=== PATIENT | male | born 1990 | race African-American/Black ===

== ENCOUNTER 2016-07-13 22:53 | Emergency (ER) | payer MEDICAID | END 2016-07-14 00:05 | disposition home or self-care (01) | LOC: D.ER 22:53 | DX: K04.7 Periapical abscess without sinus (principal); K08.89 Other specified disorders of teeth and supporting structures; K02.9 Dental caries, unspecified ==

== ENCOUNTER 2016-10-14 17:25 | Emergency (ER) | payer MEDICAID | END 2016-10-14 20:35 | disposition home or self-care (01) | LOC: D.ER 17:25 | DX: S16.1XXA Strain of muscle, fascia and tendon at neck level, initial encounter (principal); V89.2XXA Person injured in unspecified motor-vehicle accident, traffic, initial encounter; Y93.89 Activity, other specified; Y92.410 Unspecified street and highway as the place of occurrence of the external cause; S29.012A Strain of muscle and tendon of back wall of thorax, initial encounter; F17.200 Nicotine dependence, unspecified, uncomplicated; F12.90 Cannabis use, unspecified, uncomplicated ==

== ENCOUNTER 2017-07-25 17:45 | Emergency (ER) | payer MEDICAID | END 2017-07-25 20:34 | disposition home or self-care (01) | LOC: D.ER 17:45 | DX: S43.004A Unspecified dislocation of right shoulder joint, initial encounter (principal); X58.XXXA Exposure to other specified factors, initial encounter; Y93.89 Activity, other specified; Y92.89 Other specified places as the place of occurrence of the external cause; F17.200 Nicotine dependence, unspecified, uncomplicated ==

== ENCOUNTER → 2017-08-25 11:14 | Outpatient (CLI) | payer MEDICAID | END | disposition home or self-care (01) | LOC: D.MRI 11:14 | DX: M25.311 Other instability, right shoulder (principal) ==

== ENCOUNTER 2017-09-17 10:40 | Day surgery (SDC) | payer MEDICAID ==
[~2017-09-17] VITALS: Ht 177.8 cm; Wt 81.6 kg
--- NOTE | ~2017-09-17 | OP ---
PATIENT NAME: ROXANNA RICHARDSON MEDICAL RECORD: [id number] :92 LOCATION:[facility] ADMISSION DATE: SURGEON: ONEIDA TOLEDO MD DATE OF OPERATION: 09/17/2017 PREOPERATIVE DIAGNOSES: Right shoulder instability with Bankart lesion. POSTOPERATIVE DIAGNOSIS: Right shoulder instability with Bankart lesion. PROCEDURE: Open Bankart repair of the right shoulder. SURGEON: Oneida Toledo MD ANESTHESIA: General. INTRAOPERATIVE COMPLICATIONS: None. SUMMARY OF PATHOLOGIC FINDINGS: The patient indeed was found to have a partial bony partial periosteal sleeve avulsion type injury with severe instability with intraoperative anesthetic testing. OPERATIVE SUMMARY IN DETAIL: After obtaining the appropriate preoperative orthopedic surgery consent as well as anesthetic consultation, evaluation and clearance, the patient was brought to the operating room and placed on the operating table in supine position. After general laryngeal mask airway was administered, the patient was placed in the beach chair position. All pressure points were well padded. He was held firmly to the operating room table using the vacuum pack suction system. Right upper extremity and shoulder were prepped and draped in routine sterile fashion. The arm was held in Trimano arm holding device. Attempted arthroscopy was established; however, the patient was so unstable, he was very worried about the articular damage. For this reason, the arthroscopic portion was aborted. Anterior deltopectoral incision was made, taken down to the level of the cephalic vein, which was identified and protected throughout the entire case. The deltopectoral raphae was split to the clavipectoral fascia, which was incised. Conjoined tendon was gently retracted medially while the brown retractor retracted the deltoid laterally. The subscapularis was taken off the capsule and reflected. Then, the capsule was taken down and reflected as well. The patient had a very patulous inferior capsule and the findings of the anterior inferior glenoid were noted. A combination of a labral elevator, rasp as well as the Arthrex resector were utilized to prepare the anterior inferior and anterior superior aspect of the glenoid. At this point, a total of 4 PushLocks were placed at the 5:30, 4 o'clock, 2:30, and 1:30 position. They were passed through the capsule using the lasso passer and from inferior to superior these were tied holding the capsule tight while they were tied. Having completed this, the capsule was then advanced and it was tied with an imbricated style suture superiorly and tied laterally on the lesser tuberosity. Lastly, the subscapularis was slightly advanced to the level of the biceps tendon and reapproximated using #2 FiberWire. Having completed this, the wound was copiously irrigated and closed with #1 Vicryl, 2-0 Vicryl and skin isatu. Sterile dressings were applied. The patient was awakened and taken to recovery room in stable condition. All final needle and sponge counts were correct. TRANSINT:[id number] Voice Confirmation ID: [id number] DOCUMENT ID: [id number] OPERATIVE REPORT [id number] ROXANNA RICHARDSON MD, ONEIDA CHAUDHRY at 1601 CC: [id number] DICTATION DATE: 09/17/17 1347 INSIDE WIRER: 09/17/17 1433 [facility] [address] [place] [address]
[2017-09-17 11:30] VITALS: BP 136/84; Ht 177.8 cm; Wt 81.6 kg
[2017-09-17] MEDS ORDERED: HYDROCODONE-APA1 TAB PO (13:43)
== END 2017-09-17 16:10 | disposition home or self-care (01) ==
LOC: D.OPS 10:40 → D.PAN 12:00 → D.OPS 12:15 → D.PAN 13:05 → D.OPS 13:05 → D.PAN 14:15 → D.OPS 14:15
DX: M25.311 Other instability, right shoulder (principal); M24.411 Recurrent dislocation, right shoulder; Z01.812 Encounter for preprocedural laboratory examination

== ENCOUNTER 2020-03-02 19:11 | Emergency (ER) | payer MEDICAID ==
[~2020-03-02] VITALS: Ht 177.8 cm; Wt 77.1 kg
[~2020-03-02 19:11] MED LIST: HYDROCODONE-APA1 TAB PO
[2020-03-02 19:48] VITALS: Ht 177.8 cm; Wt 77.1 kg
[2020-03-02 23:35] VITALS: BP 135/86
--- NOTE | 2020-03-06 16:13 | OP ---
PATIENT NAME: ROXANNA RICHARDSON MEDICAL RECORD: [id number] :92 LOCATION:[facility] ADMISSION DATE: SURGEON: ONEIDA TOLEDO MD DATE OF OPERATION: 03/02/2020 PREOPERATIVE DIAGNOSIS: Left anterior-inferior shoulder dislocation. POSTOPERATIVE DIAGNOSIS: Left anterior-inferior shoulder dislocation. PROCEDURE: Closed reduction of left anterior-inferior shoulder under TIVA anesthesia. SURGEON: Oneida Toledo MD ANESTHESIA: TIVA given by Alexx James CRNA. INDICATIONS: This is a 29-year-old gentleman who previously had operative intervention by myself on the contralateral side for chronic dislocations. He has had several episodes of dislocations on his left side and presents tonight with a dislocation that he cannot put back in himself. Orthopedic surgery was subsequently consulted. PROCEDURAL REPORT IN DETAIL: After obtaining the appropriate preoperative orthopedic surgery consent as well as anesthetic consultation, evaluation, and clearance, the patient was seen in the ER and he was given the appropriate amount of tube anesthesia by Alexx James CRNA. After that had taken effect, traction-countertraction with a very small amount of lateral pull resulted in a closed reduction. Post-reduction films were taken and showed the shoulder had been reduced nicely. At this point, the patient was placed in a sling, given the appropriate pain medications. He will follow up in my clinic this week to discuss his options and need for further intervention. NTS:[id number] Voice Confirmation ID: [id number] DOCUMENT ID: [id number] ONEIDA TOLEDO MD at 1613 CC: [id number] DICTATION DATE: 03/05/20856 EQUAL OPPORTUNITY REPRESENTATIVE: 03/05/202022 [facility] ER 03/02/20 [id number] [place] [address]
== END 2020-03-02 23:45 | disposition home or self-care (01) ==
LOC: D.ER 19:11
DX: S43.005A Unspecified dislocation of left shoulder joint, initial encounter (principal); X58.XXXA Exposure to other specified factors, initial encounter

== ENCOUNTER 2020-09-18 17:00 | Emergency (ER) | payer SELFPAY ==
[~2020-09-18] VITALS: Ht 177.8 cm; Wt 81.8 kg
[2020-09-18 17:30] VITALS: BP 106/80; Ht 177.8 cm; Wt 81.8 kg
[2020-09-18] MEDS ORDERED: DICLOFENAC SODI50 MG PO (18:29)
== END 2020-09-18 20:38 | disposition left against medical advice (07) ==
LOC: D.ER 17:00
DX: S43.004A Unspecified dislocation of right shoulder joint, initial encounter (principal); Z53.29 Procedure and treatment not carried out because of patient's decision for other reasons; X58.XXXA Exposure to other specified factors, initial encounter

== ENCOUNTER 2020-11-08 10:25 | Emergency (ER) | payer SELFPAY ==
[~2020-11-08] VITALS: Ht 177.8 cm; Wt 81.8 kg
[~2020-11-08 10:25] MED LIST changes: +DICLOFENAC SODI50 MG PO
[2020-11-08 10:31] VITALS: BP 117/84; Ht 177.8 cm; Wt 81.8 kg
[2020-11-08] MEDS ORDERED: METHOCARBAMOL500 MG PO (11:33)
[2020-11-08] MEDS ORDERED: KEPPRA500 MG PO (11:33)
[2020-11-08] MEDS ORDERED: TORADOL10 MG PO (11:33)
== END 2020-11-08 11:40 | disposition home or self-care (01) ==
LOC: D.ER 10:25
DX: S42.291A Other displaced fracture of upper end of right humerus, initial encounter for closed fracture (principal); M25.511 Pain in right shoulder; S39.012A Strain of muscle, fascia and tendon of lower back, initial encounter; G89.29 Other chronic pain; W19.XXXA Unspecified fall, initial encounter; Y93.9 Activity, unspecified; Y92.9 Unspecified place or not applicable